=== PATIENT | female | born 1965 | race Caucasian/White ===

== ENCOUNTER → 2019-05-31 | Outpatient (CLI) | payer OTHER | LOC: MC.RAD 15:32 | DX: Z12.31 Encounter for screening mammogram for malignant neoplasm of breast (principal) ==

== ENCOUNTER → 2021-10-16 | Outpatient (CLI) | payer OTHER | LOC: MC.RAD 13:30 | DX: Z12.31 Encounter for screening mammogram for malignant neoplasm of breast (principal) ==

== ENCOUNTER → 2023-02-16 | Outpatient (CLI) | payer OTHER | LOC: MC.RAD 14:00 | DX: Z12.31 Encounter for screening mammogram for malignant neoplasm of breast (principal); R92.0 Mammographic microcalcification found on diagnostic imaging of breast ==

== ENCOUNTER → 2023-02-25 | Outpatient (CLI) | payer OTHER | LOC: MC.RAD 09:59 | DX: R92.1 Mammographic calcification found on diagnostic imaging of breast (principal) ==

== ENCOUNTER → 2024-02-22 | Outpatient (CLI) | payer OTHER ==
[~2024-02-22] MED LIST: ANTIVERT 25MG25 MG PO; BUSPAR10 MG PO; CELEBREX50 MG PO; CYMBALTA 60MG60 MG PO; DESYREL 50MG50 MG PO; GLUCOPHAGE850 MG/TAB PO; LIPITOR 40MG TA40 MG PO; NEURONTIN800 MG/TAB PO; NORCO 325 MG-51 TAB PO; PRIL40 PO; SALONPAS1 EACH TP; TOPAMAX 100MG100 M1 PO; TOPROL XL 50MG50 MG PO; TYLENOL 500MG500 MG PO; VOLTAREN GEL 1%1 TU TP; ZANAFLEX CAPSULE4 MG PO; ZESTRIL40 MG PO
== END ==
LOC: MC.RAD 08:51
DX: Z12.31 Encounter for screening mammogram for malignant neoplasm of breast (principal); Z85.3 Personal history of malignant neoplasm of breast